=== PATIENT | female | born 1995 | race Caucasian/White ===

== ENCOUNTER 2020-03-16 11:08 | Emergency (ER) | payer SELFPAY ==
[~2020-03-16] VITALS: Ht 162.6 cm; Wt 75.0 kg
[2020-03-16 11:20] VITALS: BP 99/54
[2020-03-16] MEDS ORDERED: IBUPROFEN 600MG TABLET PO STA (11:28)
== END 2020-03-16 12:44 | disposition home or self-care (01) ==
LOC: ER 11:08
DX: S83.8X1A Sprain of other specified parts of right knee, initial encounter (principal); V03.00XA Pedestrian on foot injured in collision with car, pick-up truck or van in nontraffic accident, initial encounter; Y93.89 Activity, other specified; Y92.89 Other specified places as the place of occurrence of the external cause; Y99.8 Other external cause status
CPT/HCPCS: 73562; 73590; 81025; 99284

== ENCOUNTER 2020-09-24 13:21 | Emergency (ER) | payer MEDICAID ==
[~2020-09-24] VITALS: Ht 162.6 cm; Wt 54.0 kg
[2020-09-24 13:32] VITALS: BP 107/72
[2020-09-24] MEDS ORDERED: METRONIDAZOLE 500MG TABLET PO ONE (15:15)
[2020-09-24] MEDS ORDERED: CEFTRIAXONE SODIUM 500 MG/VIAL IM ONE (15:15)
[2020-09-24] MEDS ORDERED: RALTEGRAVIR 400MG TABLET PO ONE (15:15)
[2020-09-24] MEDS ORDERED: TENOFOVIR 300MG TABLET PO ONE (15:15)
[2020-09-24] MEDS ORDERED: EMTRICITABINE 200MG CAPSULE PO ONE (15:15)
[2020-09-24] MEDS ORDERED: AZITHROMYCIN 500 MG TABLET PO ONE (15:15)
[2020-09-24] MEDS ORDERED: EMTR1TAB11 MT (16:21)
[2020-09-24] MEDS ORDERED: DOLU50TA PO (16:21)
[2020-09-24] MEDS ORDERED: METR500T PO (16:22)
[2020-09-24] MEDS ORDERED: LIDOCAINE HCL 1% 20ML VIAL (Pyxis) INJ INFIL ONE (16:30)
[2020-09-24 17:12] LABS: CHLORIDE 109 mEq/L (98-107)
[2020-09-24 17:38] LABS: HEPATITIS B SURFACE ANTIGEN NEGATIVE
[2020-09-24 18:08] LABS: HEPATITIS A AB IGM NEGATIVE (NEGATIVE)
== END 2020-09-24 16:55 | disposition home or self-care (01) ==
LOC: ER 13:21
DX: Z20.2 Contact with and (suspected) exposure to infections with a predominantly sexual mode of transmission (principal)
CPT/HCPCS: 36415; 80053; 81025; 86592; 86703; 86705; 86709; 86803; 87340; 96372; 99284; J0696